=== PATIENT | female | born 1985 | race Caucasian/White ===

== ENCOUNTER → 2016-10-25 | Outpatient (CLI) | payer OTHER ==
[~2016-10-25] MED LIST: METFORMIN HCL500 MG PO; OB COMPLETE/DHA PO; VICODIN EQUIVAL1 TAB PO; VITAMIN D-31000 UNIT PO; [UNRECOGNIZED DRUG - OTHER] PO
--- NOTE | 2016-10-25 19:10 | DIAGNOSTIC IMAGING REPORT ---
PROCEDURE: US COMPLETE PELVIC W/TRANSVAG INDICATION: 8 weeks ago with intermittent bleeding., initial encounter TECHNIQUE: Transabdominal and endovaginal min scale and color Doppler sonographic images of the female pelvis were obtained. COMPARISON: Pelvic ultrasound 08/09/2015 FINDINGS: TRANSABDOMINAL SCANS: The uterus measures 10.8 x 4.7 x 3.8 cm. Normal kidneys. TRANSVAGINAL SCANS: Retroverted uterus. Myometrium is unremarkable. Endometrium measures 9.2 mm. There is a hypoechoic area within the endometrial canal with adjacent vascularity. Right ovary measures 3.5 x 2.2 x 1.6 cm and left ovary 2.5 x 1.5 x 2.5 cm. Small peripheral follicles are present. There is vascular flow to both ovaries. There is no free fluid. IMPRESSION: 1. Small focal area of vascular endometrium with adjacent hypoechoic area suggestive of blood clot. Findings suggest retained products of conception 2. Results called to Dr. Riggs (voicemail)
== END ==
LOC: US SRH 17:58
DX: O90.89 Other complications of the puerperium, not elsewhere classified (principal)